=== PATIENT | female | born 1935 | race Two or more races ===

== ENCOUNTER 2021-11-28 08:34 | Outpatient (CLI) | payer MEDICARE, OTHER ==
[2021-11-28] MEDS ORDERED: BARIUM SULFATE 98% 135 ML SUSP.RECON PO ONE (09:03)
== END 2021-11-28 23:59 | disposition home or self-care (01) ==
LOC: RAD 08:34
PROVIDERS: ATTEND Internal Medicine Nephrology
DX: R13.10 Dysphagia, unspecified (principal)
CPT/HCPCS: 74230-TC